=== PATIENT | female | born 1990 | race American Indian/Alaskan Native ===

== ENCOUNTER 2020-09-27 17:31 | Emergency (ER) | payer MEDICAID ==
[2020-09-27 18:08] VITALS: BP 117/76
--- NOTE | 2020-09-27 18:09 | Emergency Department Report ---
Blank Doc - Documentation Documentation: 30-year-old female resents emergency department complaining of having unprotec benson sex about 3 days ago and now having some tingling with urination and lower abdominal pain she reports no nausea or vomiting she reports no hematuria no hematemesis no hematochezia. No fever. This initial assessment/diagnostic orders/clinical plan/treatment(s) is/are subject to change based on patients health status, clinical progression and re- assessment by fellow clinical providers in the ED. Further treatment and workup at subsequent clinical providers discretion. Patient/guardian urged not to elope from the ED as their condition may be serious if not clinically assessed and managed. Initial orders include: labs and treatment
== END 2020-09-28 01:00 | disposition left against medical advice (07) ==
LOC: ED 17:31
DX: R10.30 Lower abdominal pain, unspecified (principal); R20.2 Paresthesia of skin; Z53.21 Procedure and treatment not carried out due to patient leaving prior to being seen by health care provider